=== PATIENT | male | born 1970 | race Caucasian/White ===

== ENCOUNTER 2020-12-29 07:35 | Day surgery (SDC) | payer BC ==
[2020-12-21 13:58] VITALS: BMI 26.4
[~2020-12-29 07:35] MED LIST: CIPROFLOXACIN 0.3% EYE DROPS 5 ML BOTTLE OD ONE; CYCLOPENTOLATE 2% OPHTH SOLN 2 ML BOTTLE OD ONE; PHENYLEPHRINE 2.5% OPHTH SOLN 15 ML BOTTLE OD ONE; TROPICAMIDE 1% OPHTH SOLN 15 ML BOTTLE OD ONE
[2020-12-29] MEDS ORDERED: CYCLOPENTOLATE HCL 1% OPHTH SOLN 2 ML BOTTLE ONE (07:38)
[2020-12-29] MEDS ORDERED: CIPROFLOXACIN 0.3% EYE DROPS 5 ML BOTTLE ONE (07:39)
[2020-12-29] MEDS ORDERED: PHENYLEPHRINE 2.5% OPHTH SOLN 15 ML BOTTLE ONE (07:39)
[2020-12-29] MEDS ORDERED: TROPICAMIDE 1% OPHTH SOLN 15 ML BOTTLE ONE (07:39)
[2020-12-29] MEDS ORDERED: MIDAZOLAM HCL 2 MG/2 ML SINGLE DOSE VIAL ONE (09:11)
[2020-12-29 09:59] VITALS: PULSE 63
[2020-12-29 10:16] VITALS: BP 122/65; TEMP 98
== END 2020-12-29 10:34 | disposition home or self-care (01) ==
LOC: FASU 07:35
PROVIDERS: ATTEND Ophthalmology
PROC: 08RJ3JZ Replacement of Right Lens with Synthetic Substitute, Percutaneous Approach (ICD-10-PCS; principal; 2020-12-29 09:28)
DX: H26.8 Other specified cataract (principal)